=== PATIENT | female | born 1975 | race African-American/Black ===

== ENCOUNTER 2022-11-11 11:05 | Emergency (ER) | payer OTHER ==
[~2022-11-11] VITALS: Ht 162.6 cm; Wt 75.0 kg
[2022-11-11 11:11] VITALS: TEMP 98.3; O2SAT 100
[2022-11-11] MEDS ORDERED: AMOX500T3 PO (13:39)
[2022-11-11] MEDS ORDERED: IBUP-1454 PO (13:39)
[2022-11-11] MEDS ORDERED: IBUPROFEN 800 MG TAB PO ONE (13:45)
[2022-11-11 13:51] VITALS: PULSE 80; RESP 18
[2022-11-11] MEDS ORDERED: ONDANSETRON ODT 4 MG TAB PO ONE (14:00)
[2022-11-11] MEDS ORDERED: MORPHINE SULFATE 4 MG/ML SYR/VIAL IM ONE (14:00)
[2022-11-11 14:22] VITALS: BP 132/67; PULSE 67; RESP 18
== END 2022-11-11 14:24 | disposition home or self-care (01) ==
LOC: ER 11:05
DX: K08.89 Other specified disorders of teeth and supporting structures (principal); R10.12 Left upper quadrant pain
CPT/HCPCS: 96372; 99283; J2270; Q0162

== ENCOUNTER 2024-06-06 06:09 | Emergency (ER) | payer OTHER ==
[~2024-06-06] VITALS: Ht 165.1 cm; Wt 71.7 kg
[~2024-06-06 06:09] MED LIST: AMOX500T3 PO; IBUP-1454 PO
[2024-06-06 07:20] VITALS: BP 120/80; PULSE 57; RESP 18; TEMP 98.9; O2SAT 99
[2024-06-06] MEDS ORDERED: AZIT-43 PO (08:42)
[2024-06-06] MEDS ORDERED: BENZ100C97 PO (08:42)
[2024-06-06] MEDS ORDERED: TRIO1TP EX (08:42)
--- NOTE | 2024-06-06 08:43 | ED.PDOC ---
SOB-HPI HPI Comments 48-year-old female presents with a chief complaint of URI symptoms. Complains of right ear otalgia, productive cough that started a week ago. Had a tele appointment with [facility] promptly to the emergency department for evaluation No tried any medications for the symptoms listed above Chief Complaint: Flu like Time Seen by MD: 07:07 Primary Care Provider: [facility] [place] Reviewed notes: Nurses Notes, Medications, Allergies Information Source: Patient Mode of Arrival: Ambulatory Past Medical History PAST MEDICAL HISTORY: Denies Family History Family History: Reviewed,noncontributory to illness Social History Smoker: Non-Smoker Alcohol: Denies ETOH Use Drugs: Denies Drug Use All Other Systems: Reviewed and Negative (per hpi) Physical Exam General Appearance: No Apparent Distress, Normal HEENT: Normal ENT Inspection, Pharynx Normal, TMs Normal Neck: Full Range of Motion, Non-Tender, Normal, Normal Inspection Respiratory: Chest Non-Tender, Lungs Clear, No Accessory Muscle Use, No Respiratory Distress, Normal Breath Sounds Cardiovascular: No Edema, No JVD, No Murmur, No Gallop, Normal Peripheral Pulses, Regular Rate/Rhythm Breast Exam: Deferred Gastrointestinal: No Organomegaly, Non Tender, No Pulsatile Mass, Normal Bowel Sounds, Soft Genitalia: Deferred Pelvic: Deferred Rectal: Deferred Extremities: No calf tenderness, Normal capillary refill, Normal inspection, Normal range of motion, Non-tender, No pedal edema Musculoskeletal : Apperance: Normal Neurologic: Alert, pulp piler II-XII nml as Tested, No Motor Deficits, Normal Affect, Normal Mood, No Sensory Deficits Cerebellar Function: Normal Reflexes: Normal Skin: Dry, Normal Color, Warm Lymphatic: No Adenopathy Was a procedure done? Was a procedure done?: No Differential Dx Differential Diagnosis: Sinusitis, Otitis Media, URI X-Ray, Labs, Meds, VS Vital Signs Date Time Temp Pulse Resp B/P (MAP) Pulse Ox O2 Delivery O2 Flow Rate FiO2 06/06/24 07:20 57 18 99 Room Air 06/06/24 07:20 98.9 57 18 120/80 (93) 99 98.9 06/06/24 06:19 98.7 54 18 119/82 (94) 100 X-Ray, Labs, Meds, VS Comment On presentation, the patient is afebrile and has stable vital signs. The patient is overall well appearing, non-toxic on exam. The patient's symptoms are consistent with a viral upper respiratory infection. Low suspicion for Acute Asthma or COPD Exacerbation, CHF exacerbation, PE The patient did not have any focal lung findings, and therefore chest x-ray was not indicated during this visit Low suspicion for strep pharyngitis given physical exam findings and patient's presenting symptoms, therefore, rapid step was deferred No signs of meningism on exam. Overall, the patient is well-hydrated and non-toxic. Plan for empiric tx and symptomatic control for fever and pain as needed. The patient was able to tolerate p.o. intake in the ED. At this time, the patient is safe to discharge home. The exam findings and plan discussed. Will discharge home with PCP follow up and strict return precautions. Patient is stable for discharge at this time. External notes reviewed. Test results and diagnostic imaging interpreted. All diagnostic findings, discharge care, education and instructions provided Follow-up with PCP in 2 to 3 days Patient verbalized understanding and agreed to treatment plan Vital signs stable, afebrile, no acute distress noted Patient ambulatory with strong steady gait Advised to return precautions for any new or worsening symptoms, return to ER immediately for re-evaluation Patient is aware that the purpose of this visit was for an acute medical emergency requiring emergent stabilization. Chronic conditions, including malignancies have not been ruled out. Patient is instructed to follow up with PCP as directed and discharge instructions for continued care and workup. If unable to arrange follow-up, patient is to return to the emergency department for reassessment. Patient (parent or legal guardian if applicable) was given verbal and written discharge instructions and acknowledges understanding. Time of 1ST Reevaluation: 08:30 Reevaluation 1ST: Improved Patient Education/Counseling: Diagnosis, Treatment Family Education/Counseling: Diagnosis, Treatment Departure 1 Departure Time of Disposition: 08:41 Impression: Primary Impression: Bronchitis Additional Impression: Eczema Qualified Codes: L30.9 - Dermatitis, unspecified Disposition: HOME / SELF CARE / HOMELESS Condition: Stable e-Prescriptions Triamcinolone Acetonide (Triamcinolone Acetonide) 0.1 % Cre 1 APPLIC EX BID for 7 Days, #60 GRAMS 0 Refills Prov: CORINA FERRARA CIRCUIT RECORDER 06/06/24 Azithromycin (Azithromycin) 250 Mg Tab 250 MG PO DAILY MDD 500 for 5 Days, #6 TAB 0 Refills 2 TABLETS ORALLY ON DAY ONE, THEN 1 TABLET ORALLY DAILY FOR 4 DAYS Prov: CORINA FERRARA NP 06/06/24 Benzonatate (Benzonatate) 100 Mg Cap 1 CAP PO TID for 10 Days, #30 CAP 0 Refills Prov: CORINA FERRARA NP 06/06/24 Critical Care Note Critical Care Time?: No Stability Stability form required: No Heart Score Heart Score: Heart Score Response (Comments) Value History N/A 0 EKG N/A 0 Age N/A 0 Risk Factors N/A 0 Troponin N/A 0 Total 0 CORINA FERRARA [employer] RECORDER Jun 06, 2024 08:43
[2024-06-06] MEDS ORDERED: AUG875T PO (17:38)
== END 2024-06-06 08:49 | disposition home or self-care (01) ==
LOC: ER 06:09
DX: J40 Bronchitis, not specified as acute or chronic (principal); L30.9 Dermatitis, unspecified; H92.01 Otalgia, right ear